=== PATIENT | male | born 1950 | race Caucasian/White ===

== ENCOUNTER 2016-06-16 09:57 | Emergency (ER) | payer BC ==
[~2016-06-16] VITALS: Ht 180.3 cm; Wt 84.0 kg
[~2016-06-16 09:57] MED LIST: METH-356 PO; METH10OR
[2016-06-16 10:14] VITALS: BP 150/84
[2016-06-16] MEDS ORDERED: DIAZEPAM 5 MG TABLET ONE (10:51)
[2016-06-16] MEDS ORDERED: HYDROcodone/APAP 5/325 TABLET ONE (10:51)
[2016-06-16] MEDS ORDERED: KETOROLAC 30 MG/1 ML ONE (10:51)
[2016-06-16] MEDS ORDERED: KETOROLAC 30 MG/1 ML IM ONE (11:00)
[2016-06-16] MEDS ORDERED: DIAZEPAM 5 MG TABLET PO ONE (11:00)
[2016-06-16] MEDS ORDERED: HYDROcodone/APAP 5/325 TABLET PO ONE (11:00)
== END 2016-06-16 13:05 | disposition home or self-care (01) ==
LOC: ED 12:59
DX: S39.012A Strain of muscle, fascia and tendon of lower back, initial encounter (principal); S29.012A Strain of muscle and tendon of back wall of thorax, initial encounter; X58.XXXA Exposure to other specified factors, initial encounter; Y93.89 Activity, other specified; Y92.89 Other specified places as the place of occurrence of the external cause; Y99.9 Unspecified external cause status
CPT/HCPCS: 72072; 72110; 81001; 87077; 87086; 87186; 96372; 99285; J1885

== ENCOUNTER 2017-05-19 13:05 | Emergency (ER) | payer BC, OTHER ==
[~2017-05-19] VITALS: Ht 180.3 cm; Wt 93.4 kg
[2017-05-19 17:31] VITALS: BP 184/66
[2017-05-19] MEDS ORDERED: DIAZEPAM 5 MG TABLET ONE (17:54)
[2017-05-19] MEDS ORDERED: HYDROmorphone 2 MG/ML, 1ML ONE (17:54)
[2017-05-19] MEDS ORDERED: KETOROLAC 30 MG/1 ML ONE (17:54)
[2017-05-19] MEDS ORDERED: HYDROmorphone 1 MG/ML, 1ML IM ONE (18:00)
[2017-05-19] MEDS ORDERED: DIAZEPAM 5 MG TABLET PO ONE (18:00)
[2017-05-19] MEDS ORDERED: KETOROLAC 30 MG/1 ML IM ONE (18:00)
== END 2017-05-19 18:51 | disposition home or self-care (01) ==
LOC: ED 18:10
DX: M54.5 Low back pain (principal)
CPT/HCPCS: 72110; 96372; 99284; J1170; J1885

== ENCOUNTER 2020-11-26 02:14 | Emergency (ER) | payer MEDICARE, OTHER ==
[~2020-11-26] VITALS: Ht 180.3 cm; Wt 92.9 kg
[~2020-11-26 02:14] MED LIST changes: -METH-356 PO; +METH10TA2 PO
[2020-11-26 02:18] VITALS: BP 174/75
[2020-11-26] MEDS ORDERED: METHADONE 10 MG TABLET PO ONE (03:00)
--- NOTE | 2020-11-26 03:15 | NUR ---
PRIOR TO ADMIN [facility]ETH[facility] PATIENT STATES HE WILL CALL [facility] WHEN HE IS DISCHARGED.
--- NOTE | 2020-11-26 04:16 | NUR ---
Patient given discharge instructions and they have confirmed that they understand the instructions. Patient ambulatory with steady gait. NAD, all questions answered appropriately, denies additional needs at this time. No personal belongings left in room after discharge.
== END 2020-11-26 04:24 | disposition home or self-care (01) ==
LOC: ED 02:30
DX: M25.562 Pain in left knee (principal)
CPT/HCPCS: 99283